=== PATIENT | male | born 1995 | race Hispanic/Latino ===

== ENCOUNTER 2020-09-18 13:48 | Emergency (ER) | payer MEDICAID, SELFPAY ==
[2020-09-18] MEDS ORDERED: Morphine 2 MG/ML VIAL ONE (20:50)
[2020-09-18] MEDS ORDERED: Nitroglycerin 2% Ointment 1 INCH/1 GM Packet ONE (20:51)
== END 2020-09-18 15:04 | disposition home or self-care (01) ==
LOC: ERS 13:48
DX: H60.92 Unspecified otitis externa, left ear (principal); R59.0 Localized enlarged lymph nodes
CPT/HCPCS: 99283; J2270